=== PATIENT | male | born 1985 | race Caucasian/White ===

== ENCOUNTER 2021-04-12 21:38 | Emergency (ER) | payer BC, SELFPAY ==
[2021-04-12 21:57] VITALS: BP 149/98; PULSE 88; RESP 18; TEMP 36.8; O2SAT 97; BMI 35.1
--- NOTE | 2021-04-12 22:04 | XR_ITS ---
PROCEDURE INFORMATION: Exam: XR Chest Exam date and time: 04/12/2021 10:04 PM Age: 35 years old Clinical indication: Shortness of breath; Right-sided; Prior surgery; Surgery date: 6+ months; Surgery type: Pna; Patient HX: Right sided pain when breathing, SOA, nonsmoker; Additional info: Short of breath TECHNIQUE: Imaging protocol: XR of the chest. Views: 2 views. COMPARISON: CR CXR CHEST(2 VIEWS-NOT PORTABLE) 09/30/2017 11:09 PM FINDINGS: Lungs: No infiltrate is seen. Pleural spaces: No pleural effusion is seen. Heart/Mediastinum: Unremarkable. No cardiomegaly. Diaphragm: There is elevation of the right hemidiaphragm. Bones/joints: Unremarkable. IMPRESSION: 1. Elevation of the right hemidiaphragm. 2. No infiltrate or pleural effusion is seen.
--- NOTE | 2021-04-12 22:25 | HMH.EDGENADL ---
ED Disposition Clinical Impression: Pleurisy Disposition: Home, Self-Care Condition on Discharge: Good Instructions: DI for Pleurisy Additional Instructions: see pcp for follow up Prescriptions: Ketorolac Tromethamine [Toradol 10mg tablet] 10 mg PO Q6HP PRN #8 tab MDD 40mg/day PRN Reason: Moderate To Severe Pain Transmission Status: Pending to [facility] Referrals: Avril Salas [Primary Care Provider] - - Critical Care Critical Care Time: No Attestation: On 04/12/21, the high probability of a clinically significant, sudden or life threatening deterioration of the following system(s) required my full and direct attention, intervention and personal management. The time I documented below is in addition to time spent performing reported procedures but includes the following listed in this critical care notation. Medical Decision Making - Medical Records Medical records reviewed: Yes: I reviewed the patient's medical records. - Chris Inquiry Pt receiving controlled substance: No Vital Signs: 04/12/21 21:57 04/12/21 22:26 Temperature 98.2 F Temperature Source Oral Pulse Rate 85 Pulse Rate [Right] 88 Respiratory Rate 18 Blood Pressure 144/97 H Blood Pressure [Right Arm] 149/98 H Blood Pressure Mean [Right Arm] 115 Blood Pressure Source [Right Arm] Automatic Cuff Blood Pressure Position [Right Arm] Sitting 02 Sat by Pulse Oximetry 97 98 Oxygen Delivery Method Room Air Orders (Tests/Meds): ORDERS Category Date Time Status Chest XR 2 view (NOT portable) [XR chest 2V] Stat Exams 04/12/21 22:04 Taken - Radiology Data #1 Image(s): Chest Image Reviewed: Yes I reviewed the patient's radiology image Preliminary Findings: Normal/NAD General Adult HPI - General Chief complaint: PAIN Stated complaint: Rib pain when breathing and with movement Time Seen by Provider: 04/12/21 22:05 Mode of Arrival: Ambulatory Source of Information: Patient, Medical Record Limitations: No Limitations Description of Symptoms (Recalled from ER Triage Doc. by RN): Pt states he has right mid rib pain with palpation and deep breaths. Abd soft and non-tender. Pt denies any N/V/D - History of Present Illness HPI narrative: hx of rt rib pain worse with mov and deep insp - had hx of chest tube and pxt Onset (ago): hour(s) Location: chest Severity: moderate Consistency: intermittent Associated symptoms: denies other symptoms - Related Data Home Medications Medication Instructions Recorded Confirmed ARIPiprazole [Abilify Mycite] 10 mg PO HS 04/12/21 04/12/21 Buprenorphine HCl/Naloxone HCl 1 each SL DAILY 04/12/21 04/12/21 [Suboxone 8 mg-2 mg Sl Film] Gabapentin [Neurontin 800mg Tab] 800 mg PO QID 04/12/21 04/12/21 Hydroxychloroquine Sulfate 200 mg PO DAILY 04/12/21 04/12/21 [Plaquenil 200mg tablet] Metoprolol Succinate [Metoprolol 25 mg PO DAILY 04/12/21 04/12/21 Succinate 25mg Tablet*] Venlafaxine HCl [Venlafaxine HCl 150 mg PO DAILY 04/12/21 04/12/21 ER] clonazePAM [Clonazepam] 0.5 mg PO TID 04/12/21 04/12/21 predniSONE [Prednisone 5mg See Taper PO DAILY 04/12/21 04/12/21 Tab] Previous Rx's Medication Instructions Recorded Ketorolac Tromethamine [Toradol 10 mg PO Q6HP PRN #8 tab MDD 04/12/21 10mg tablet] 40mg/day Allergies Allergy/AdvReac Type Severity Reaction Status Date / Time No Known Allergies Allergy Unverified 10/20/17 14:52 [facility] History - Hepatitis A Screen Drug use history?: Yes High risk sexual behaviors?: No History of sexually transmitted infection?: No Currently employed?: No Childcare worker?: No Do you have indoor plumbing?: Yes Do you have electricity?: Yes Attestation statement:: This patient has been screened for Hepatitis A risk factors. I have reviewed the patient's past medical history: Yes Medical History: Denies:: Diabetes Mellitus Type 1, Diabetes Mellitus Type 2 - Social History
[2021-04-12 22:26] VITALS: BP 144/97; PULSE 85; O2SAT 98
[2021-04-12 23:14] VITALS: BP 153/95; PULSE 72; RESP 16; TEMP 36.8; O2SAT 98
== END 2021-04-12 23:15 | disposition home or self-care (01) ==
PROVIDERS: Emergency Provider Emergency Medicine; PCP Emergency Medicine
DX: R09.1 Pleurisy (principal); R07.9 Chest pain, unspecified; F17.290 Nicotine dependence, other tobacco product, uncomplicated
CPT/HCPCS: 71046; 99282

== ENCOUNTER → 2021-06-21 14:23 | Outpatient (CLI) | payer BC, SELFPAY ==
--- NOTE | 2021-06-21 14:24 | CA_ITS ---
APPROVED REPORT Bilateral Upper Extremity Venous Study for DVT. Geospatial Image Analyst: Coni Pina RVT Indications Upper Extremity Pain: Bilateral Upper Extremity Edema: Bilateral PT HAS BILATERAL HAND SWELLING/REDNESS X 1 YEAR Risk Factors Current Smoker Vein Imaging IJV (R): Normal phasic flow is seen. Normal flow, augmentation and compression is seen. No evidence of Deep Vein Thrombosis. No abnormalities are demonstrated. SCV (R): Normal phasic flow is seen. Normal flow, augmentation and compression is seen. No evidence of Deep Vein Thrombosis. No abnormalities are demonstrated. Axillary (R): Normal phasic flow is seen. Normal flow, augmentation and compression is seen. No evidence of Deep Vein Thrombosis. No abnormalities are demonstrated. Brachial (R): Normal phasic flow is seen. Normal flow, augmentation and compression is seen. No evidence of Deep Vein Thrombosis. No abnormalities are demonstrated. Basilic (R): Normal phasic flow is seen. Normal flow, augmentation and compression is seen. No evidence of Deep Vein Thrombosis. No abnormalities are demonstrated. Cephalic (R): Normal phasic flow is seen. Normal flow, augmentation and compression is seen. No evidence of Deep Vein Thrombosis. No abnormalities are demonstrated. Radial (R): Compressible Ulnar (R): Compressible IJV (L): Normal phasic flow is seen. Normal flow, augmentation and compression is seen. No evidence of Deep Vein Thrombosis. No abnormalities are demonstrated. SCV (L): Normal phasic flow is seen. Normal flow, augmentation and compression is seen. No evidence of Deep Vein Thrombosis. No abnormalities are demonstrated. Axillary (L): Normal phasic flow is seen. Normal flow, augmentation and compression is seen. No evidence of Deep Vein Thrombosis. No abnormalities are demonstrated. Brachial (L): Normal phasic flow is seen. Normal flow, augmentation and compression is seen. No evidence of Deep Vein Thrombosis. No abnormalities are demonstrated. Basilic (L): Normal phasic flow is seen. Normal flow, augmentation and compression is seen. No evidence of Deep Vein Thrombosis. No abnormalities are demonstrated. Cephalic (L): Normal phasic flow is seen. Normal flow, augmentation and compression is seen. No evidence of Deep Vein Thrombosis. No abnormalities are demonstrated. Radial (L): Compressible Ulnar (L): Compressible Findings Study suggests no evidence of DVT or SVT of the bilateral upper extremities. Conclusion Study suggests no evidence of DVT or SVT of the bilateral upper extremities. Critical Notification Date: 06/21/2021 Time: 15:06 Physician Name: Susanna's office Electronically signed by : Cb Be MD 06/21/2021 15:40:51
--- NOTE | 2021-06-21 15:06 | XR_ITS ---
PROCEDURE: XR HAND LT MIN 3V CLINICAL INDICATION: Swelling COMPARISON: No exams were available for comparison FINDINGS: There is mild diffuse soft tissue swelling. No fracture or dislocation. No lytic or blastic change. The joint spaces are well preserved. No radiopaque foreign bodies or soft tissue gas apparent IMPRESSION: Diffuse soft tissue swelling otherwise negative Dictated by: Cb Be MD 06/21/2021 15:35 Cb Be MD in OV 06/21/2021 15:35
--- NOTE | 2021-06-21 15:06 | XR_ITS ---
PROCEDURE: XR HAND RT MIN 3V CLINICAL INDICATION: Swelling COMPARISON: No exams were available for comparison FINDINGS: No fracture or dislocation. No lytic or blastic change. There is normal mineralization. The joint spaces are well-preserved. No significant degenerative/arthritic changes. No erosive changes evident. Other findings:There is mild diffuse soft tissue swelling. There is an old 5th metacarpal fracture bowing of the distal aspect of the 5th metacarpal anteriorly IMPRESSION: Soft tissue swelling otherwise negative Dictated by: Cb Be MD 06/21/2021 15:36 Cb Be MD in OV 06/21/2021 15:36
== END ==
PROVIDERS: PCP Family Medicine; Visit Provider Nurse Practitioner Family
DX: L03.90 Cellulitis, unspecified (principal); R60.9 Edema, unspecified
CPT/HCPCS: 73130; 93970

== ENCOUNTER → 2021-06-28 09:46 | Outpatient (CLI) | payer BC, SELFPAY ==
--- NOTE | 2021-06-28 09:54 | CA_ITS ---
APPROVED REPORT EXAM: Comprehensive 2D, Doppler, and color-flow Echocardiogram Welding Machine Feeder: Coni Pina RVT Ht: 5 ft 9 in Wt: 240lbs BSA: 2.23 BP: 144/96 mmHg Indications: EDEMA,SMOKER,FORMER DRUG USER 2D Dimensions LVOT 2.29 cm (M/F) 1.5-2.5 LA Volume 16.00 mL LA Volume Index 7.17 mL/m2 (M/F) 16-34 M-Mode Dimensions RVDd 3.00 cm (0.9-2.6) LA Diam 3.41 cm (1.9-4.0) LVDd 4.40 cm (3.5-5.7) Ao Diam 3.00 cm (2.0-3.7) LVDs 2.54 cm (3.5-5.7) IVSd 1.02 cm (0.6-1.1) PWd 0.83 cm (0.6-1.1) EF (Teich) 73.50% FS 42.30% EDV (Teich) 87.70 mL TAPSE 2.26 (<1.7) ESV (Teich) 23.20 mL LV Diastology E Decel Time 250.00 (160-240 msec) E/A Ratio 1.3 MED E' 7.60 (< 7 cm/sec) E'/MED E' Ratio 11.53 (>14) LAT E' 14.00 (<10 cm/sec) E/LAT E' Ratio 6.26 (>14) Mitral Valve MV E Max Adriel. 88.00 (40-130 cm/s) MV A Velocity 66.00 (40-130 cm/s) E/A Ratio 1.34 MV Decel. Time 250.00 (160-240 ms) MV PHT 73.00 ms Pulmonary Valve PV Peak Velocity 84.00 (50-150 cm/s) Tricuspid Valve TR P. Velocity 241.00 cm/s RAP Estimate 10.00 mmHg RVSP 33.20 mmHg Left Ventricle Left atrium is normal size, left ventricle is normal size, there is no concentric left ventricular hypertrophy, visually estimated ejection fraction 55% with no regional wall motion abnormality, diastolic parameters are within normal range. Right Ventricle Right atrium and right ventricle mildly enlarged with normal contractility. Aortic Valve Aortic valve is grossly normal, there is no aortic stenosis or aortic insufficiency. Mitral Valve Mitral valve is grossly normal, there is trace mitral regurgitation. Tricuspid Valve Tricuspid grossly normal, there is trace tricuspid regurgitation, tricuspid regurgitation jet velocity is inadequate for calculation of the right ventricular systolic pressure. Pulmonic Valve Pulmonic valve is poorly visualized. Great Vessels Aortic root is normal size. Pericardium No significant pericardial effusion noted. Conclusion 1. Normal left ventricular size, preserved left ventricular systolic function, visually estimated ejection fraction 55% with no regional wall motion abnormality, diastolic parameters are within normal range. 2. Mildly enlarged right ventricle with normal contractility. 3. Trace mitral and tricuspid regurgitation. 4. No significant pericardial effusion noted. Electronically signed by : Matty Stephenson MD 06/28/2021 18:22:09
== END ==
PROVIDERS: PCP Family Medicine; Visit Provider Nurse Practitioner Family
DX: R60.9 Edema, unspecified (principal)
CPT/HCPCS: 93306

== ENCOUNTER 2023-01-12 16:39 | Emergency (ER) | payer BC, SELFPAY ==
[2023-01-12 16:55] VITALS: BP 126/89; PULSE 89; RESP 16; TEMP 36.7; O2SAT 97; BMI 34.4
--- NOTE | 2023-01-12 17:45 | EXP.UTC ---
Discharge Plan Disposition Patient Disposition: Home, Self-Care Condition: Good Prescriptions Prescriptions: New benzonatate 100 mg capsule 100 mg PO TID PRN (Reason: cough) Qty: 15 0RF cefdinir 300 mg capsule 300 mg PO BID Qty: 20 0RF No Action lorazepam 0.5 mg tablet 0.5 mg PO BID PRN (Reason: anxiety) Qty: 30 1RF buspirone 15 mg tablet 15 mg PO TID Qty: 90 2RF gabapentin 800 MG tablet 800 mg PO QID metoprolol succinate 25 MG tablet extended release 24 hr 25 mg PO DAILY venlafaxine 150 MG tablet extended release 24hr 150 mg PO DAILY buprenorphine-naloxone 1 EACH film 1 each SL DAILY aripiprazole 10 MG tablet with sensor, strip, pod 10 mg PO HS Referrals Follow up/Referrals: Avril Salas [Primary Care Provider] - See instructions Activity Restrictions/Add. Instructions Additional Instructions/Restrictions: Drink extra fluids with and between meals. If you have difficulty drinking, try very small amounts of water or suck on ice chips. ? Avoid fruit juices, as these do not replace minerals and can actually increase diarrhea. ? Children and adults can use sports drinks to replenish electrolytes. Younger children and infants should use products formulated for children, like oral rehydration solutions. ? Eat food in small amounts and let your stomach recover. ? Get lots of rest. You may feel tired or weak. ? No greasy or fried foods for the next 24-48 hours BRAT diet Bananas Rice Apples and [place] ? Make sure to drink plenty of liquids ? Return if needed ? Straight to ER if any life threatening symptoms ? Follow up with family doctor in the next 48-72 hours if no improvement or any worsening of symptoms Clinical Impressions Clinical Impression: Otitis media Instructions Patient Instructions: Diarrhea, Middle Ear Infection, Cefdinir Discharge ED Provider: Laura Dalton [facility] General Stated complaint: h/a, diarrhea, body aches, congestion Mode of Arrival: Ambulatory Source of Information: Patient Limitations: No Limitations Time Seen by Provider: 01/12/23 17:45 Description of Symptoms (Recalled from Triage Doc. by RN): PATIENT C/O CONGESTION, NAUSEA, HEADACHE, SWEATS, SOA, AND DIARRHEA X 4 DAYS HEENT Symptoms (Recalled from RN notes): Yes Resp Symptoms (Recalled from RN notes): Yes Skin Symptoms (Recalled from RN notes): No MS Symptoms (Recalled from RN notes): No Functional Status (Recalled from RN notes): WNL History of Present Illness Provider Complaint: Patient states that he has been having sinus congestion and pressure, pain in both ears, nausea, cough, headache and body aches States that this morning he got up and had some diarrhea wanting tested for flu and COVID Related Data Home Medications Medication Instructions Recorded Confirmed aripiprazole 10 mg oral tablet 10 mg PO HS . 04/12/21 08/01/21 with sensor, strip, and pod buprenorphine 8 mg-naloxone 2 mg 1 each SL DAILY opiod withdrawl 04/12/21 08/01/21 sublingual film gabapentin 800 mg tablet 800 mg PO QID Pain 04/12/21 08/01/21 metoprolol succinate 25 mg 25 mg PO DAILY High blood pressure 04/12/21 08/01/21 tablet,extended release 24 hr venlafaxine 150 mg tablet,extended 150 mg PO DAILY Depression 04/12/21 08/01/21 release 24 hr Previous Rx's Medication Instructions Recorded buspirone 15 mg tablet 15 mg PO TID #90 tabs 08/01/21 lorazepam 0.5 mg tablet 0.5 mg PO BID PRN anxiety #30 tabs 08/01/21 benzonatate 100 mg capsule 100 mg PO TID PRN cough #15 caps 01/12/23 cefdinir 300 mg capsule 300 mg PO BID #20 caps 01/12/23 Allergies Allergy/AdvReac Type Severity Reaction Status Date / Time No Known Allergies Allergy Verified 01/12/23 17:16 Worker's Comp Is this a Worker's Comp case?: No [facility] Disclaimer: The information contained in this section may have been updated after the sonu
[2023-01-12 17:59] VITALS: BP 126/89; PULSE 89; RESP 16; TEMP 36.7; O2SAT 97
== END 2023-01-12 18:02 | disposition home or self-care (01) ==
PROVIDERS: Emergency Provider Nurse Practitioner; PCP Emergency Medicine
DX: H66.91 Otitis media, unspecified, right ear (principal); R51.9 Headache, unspecified; R05.1 Acute cough; R11.0 Nausea; R19.7 Diarrhea, unspecified; R09.81 Nasal congestion; Z20.822 Contact with and (suspected) exposure to COVID-19
CPT/HCPCS: 99212; 99214; C9803; G0463; U0003; U0005

== ENCOUNTER 2023-01-17 19:51 | Emergency (ER) | payer BC, SELFPAY ==
[2023-01-17 19:53] VITALS: BP 131/78; PULSE 90; RESP 22; TEMP 36.6; O2SAT 90; BMI 34.4
--- NOTE | 2023-01-17 20:15 | XR_ITS ---
PROCEDURE INFORMATION: Exam: XR Chest Exam date and time: 01/17/2023 8:13 PM Age: 37 years old Clinical indication: Cough; Additional info: Chest congestion TECHNIQUE: Imaging protocol: Radiologic exam of the chest. Views: 2 views. Total images: 2 COMPARISON: CR XR CHEST 2V 04/12/2021 10:07 PM FINDINGS: Lungs: Unremarkable. No consolidation. No pulmonary vascular congestion or edema. Pleural spaces: Stable blunting right lateral and posterior costophrenic angle reflecting pleural thickening or chronic trace pleural effusion. No pneumothorax. Heart/Mediastinum: Unremarkable. No cardiomegaly. No mediastinal widening or hilar enlargement. Diaphragm: Stable elevation right hemidiaphragm. Bones/joints: Mild degenerative changes thoracic spine. IMPRESSION: No radiographically acute cardiopulmonary process or significant change.
--- NOTE | 2023-01-17 20:28 | HMH.EDSOB ---
Discharge Plan Disposition Patient Disposition: Home, Self-Care Prescriptions Prescriptions: New azithromycin [azithromycin] 250 mg tablet 250 mg PO DIRECTED Qty: 6 0RF Rx Instructions: Take two (2) tablets on day #1, then one (1) tablet day #2 thru #5 prednisone [prednisone] 20 mg tablet 20 mg PO BID Qty: 10 0RF No Action benzonatate 100 mg capsule 100 mg PO TID PRN (Reason: cough) Qty: 15 0RF gabapentin 800 MG tablet 800 mg PO QID metoprolol succinate 25 MG tablet extended release 24 hr 25 mg PO DAILY buprenorphine-naloxone 1 EACH film 1 each SL DAILY cyclobenzaprine 10 mg tablet 5 - 10 mg PO Q8HP PRN (Reason: Muscle Spasm) Label Comments: take 1/2-1 TABLET BY MOUTH EVERY EIGHT HOURS NEEDED FOR spasm/pain clonazepam 0.5 mg tablet 0.5 mg PO TIDP PRN (Reason: Anxiety) Label Comments: TAKE ONE TABLET up to THREE TIMES DAILY as needed hydroxyzine HCl 50 mg tablet 50 mg PO Q6HP PRN (Reason: Anxiety) Label Comments: TAKE ONE TABLET BY MOUTH EVERY SIX HOURS NEEDED FOR ANXIETY levothyroxine 25 mcg tablet 25 mcg PO DAILY Label Comments: TAKE ONE TABLET BY MOUTH DAILY EVERY MORNING on an empty stomach fluticasone propion-salmeterol [Advair Diskus] 100-50 mcg/dose blister with device 1 inh INHALATION BID Label Comments: inhale ONE PUFF TWICE DAILY albuterol sulfate [Ventolin HFA] 90 mcg/actuation HFA aerosol inhaler 2 puff INHALATION Q4-6H PRN (Reason: soa, wheezing) Label Comments: INHALE TWO PUFFS BY MOUTH EVERY 4-6 HOURS NEEDED cefdinir 300 mg capsule 300 mg PO BID Referrals Follow up/Referrals: Avril Salas [Primary Care Provider] - See instructions Clinical Impressions Clinical Impression: Bronchitis, Reactive airway disease Instructions Patient Instructions: DI for Reactive Airway Disease-Adult Discharge ED Provider: Keegan (ED)Sunny Resp/SOB HPI General Chief Complaint: Shortness of Breath/Dyspnea Stated Complaint: SOA,Congestion,lightheaded,Dizziness Time Seen by Provider: 01/17/23 20:28 Mode of Arrival: Wheelchair Source of Information: Patient, Significant Other and Medical Record Limitations: No Limitations Description of Symptoms (Recalled from ER Triage Doc. by RN): Pt c/o chest congestion, wheezing with SOA, increased swelling, and body aches. States the symtoms returned shortly after he was seen at [facility] on 01/12. He was dx with a middle ear infection and given Cefdinir. Pt also reports he is having dizziness with exertion. History of Present Illness has hx of congestion and has hx of upper ext lymphadema- pt on abx for recent sinus infection MD Complaint: shortness of breath Onset (ago): day(s) Context: recent illness Severity: moderate Consistency/Duration: intermittent Known history of: other (upper ext edema ) Associated symptoms: denies other symptoms Treatment prior to arrival: bronchodilator Related Data Home oxygen amount: 2 liters Home Medications Medication Instructions Recorded Confirmed buprenorphine 8 mg-naloxone 2 mg 1 each SL DAILY opiod withdrawl 04/12/21 01/17/23 sublingual film gabapentin 800 mg tablet 800 mg PO QID Pain 04/12/21 01/17/23 metoprolol succinate 25 mg 25 mg PO DAILY High blood pressure 04/12/21 01/17/23 tablet,extended release 24 hr albuterol sulfate 90 mcg/actuation 2 puff inhalation Q4-6H PRN soa, 01/17/23 01/17/23 aerosol inhaler (Ventolin HFA) wheezing cefdinir 300 mg capsule 300 mg PO BID ear infection 01/17/23 01/17/23 clonazepam 0.5 mg tablet 0.5 mg PO TIDP PRN Anxiety 01/17/23 01/17/23 cyclobenzaprine 10 mg tablet 5 - 10 mg PO Q8HP PRN Muscle Spasm 01/17/23 01/17/23 fluticasone 100 mcg-salmeterol 50 1 inh inhalation BID COPD 01/17/23 01/17/23 mcg/dose blistr powdr for inhalation (Advair Diskus) hydroxyzine HCl 50 mg tablet 50 mg PO Q6HP PRN Anxiety 01/17/23 01/17/23 levothyroxine 25 mcg tablet 25 mcg P
[2023-01-17 20:30] VITALS: PULSE 81
[2023-01-17 20:40] VITALS: PULSE 83
[2023-01-17 21:26] VITALS: PULSE 84
[2023-01-17 21:27] VITALS: PULSE 85
--- NOTE | 2023-01-17 22:49 | PC.NURSE ---
LAB at to attempt to get labs
[2023-01-17 22:52] VITALS: BP 144/86; PULSE 71; RESP 15; TEMP 36.6; O2SAT 93
[2023-01-17 23:11] LABS: Chloride 103 mmol/L (98-107); Sodium 138 mmol/L (136-145)
[2023-01-17 23:12] LABS: Potassium 5.1 mmoL/L (3.5-5.1)
[2023-01-17 23:14] LABS: Alanine Aminotransferase 26 U/L (12-78); Albumin Level 3.3 g/dl (3.5-5.0); Albumin/Globulin Ratio 1.3 (1.1-1.8); Alkaline Phosphatase 50 U/L (38-126); Anion Gap 9.1 mEq/L (5-15); Aspartate Amino Transferase 39 U/L (17-59); Bilirubin,Total 0.3 mg/dl (0.2-1.3); Blood Urea Nitrogen 13 mg/dl (9-20); Carbon Dioxide 31 mmol/L (22.0-30.0); Creatinine Clearance Estimated 193 mL/min (50-200); Estimated Glomerular Filt Rate 108 ml/min (>60); GFR (African American) 131 ML/MIN (>60); Globulin 2.5 g/dL (1.3-3.2); Total Protein,Serum 5.8 g/dl (6.3-8.2)
[2023-01-17 23:15] LABS: Calcium 7.8 mg/dl (8.4-10.2); Glucose 94 mg/dl (74-100)
--- NOTE | 2023-01-17 23:20 | PC.NURSE ---
Have had difficulty placing PIV and obtaining labs. Pt has had 3 rn's and u/s at bedside in attempt to collect. Lab Birgit, also has been at bedside. Able to collect with FS pediatric blood tubes, however the lavender was hemolyzed and unable to process. aware.
[2023-01-17 23:28] LABS: C-Reactive Protein 10.1 mg/L (0-4)
[2023-01-17 23:34] LABS: NT Pro Brain Natriuretic Pep. 102 pg/mL (0-125)
[2023-01-17 23:47] LABS: Procalcitonin 0.062 ng/mL (0.0-2.0)
[2023-01-17 23:49] LABS: T4 (Thyroxine) 5.4 ug/dl (5.53-11.0)
[2023-01-17 23:55] LABS: Thyroid Stimulating Hormone 7.96 uIU/mL (0.465-4.68)
== END 2023-01-17 23:33 | disposition home or self-care (01) ==
PROVIDERS: Emergency Provider Emergency Medicine; PCP Emergency Medicine
DX: J20.9 Acute bronchitis, unspecified (principal); J45.909 Unspecified asthma, uncomplicated; R42 Dizziness and giddiness; R06.02 Shortness of breath
CPT/HCPCS: 71046; 80053; 83880; 84145; 84436; 84443; 86140; 99284; 99285

== ENCOUNTER 2023-10-12 14:47 | Emergency (ER) | payer SELFPAY ==
[2023-10-12 15:00] VITALS: BP 117/69; PULSE 83; RESP 18; TEMP 36.7; O2SAT 96; BMI 41.9
--- OUTSIDE RECORDS SUMMARY | 2023-10-12 16:08 | XMS_ITS | Continuity of Care Document ---
Author Name Unknown Address [address] [place] [phone] Organization [facility] Phone Care Team Providers Care Rn Clinical Research Name Role Phone IRMA MICHAUD Unavailable IRMA MICHAUD Primary Attending ALLISON TEJEDA Primary Care IRMA MICHAUD Admitting ALLERGIES AND ADVERSE REACTIONS ALLERGIES AND ADVERSE REACTIONS Code System Allergy Substance Adverse Reaction Date Reaction (Severity) Comment Status Reported By Updated By No Known Allergies [email or web address] on September 06, 2023 12:20:44 AM UT RESULTS Patient: KRISTY BRAVO Date of : [birth year] 9 LABORATORY RESULTS ORDER 100: STREP GROUP A EIA RAPID SCREEN (LOINC: 6558-1) ORDER DATE: September 05, 2023 10:25:00 PM UT Specimen Source: Swab PERFORMING LAB: [address] [id number] Result Comment: Final Result Date: September 05, 2023 10:30:00 PM UT (TECH: AC) LOINC TEST FLAG RESULT REFERENCE RANGE UPDA VALENTIN BY 6558-1 Streptococcus pyogenes Ag [Presence] in Unspecified specimen by Immunoassay N NEGATIVE NEGATIVE September 05, 2023 10:30:00 PM UTC (TECH: AC) [id number] Internal control result N PASS PASS September 05, 2023 10:30:00 PM UT (TECH: AC) ORDER 200: SARS-COV-2 ELVIRA IN HOUSE (LOINC: 60758-4) ORDER DATE: September 05, 2023 10:25:00 PM UT
--- OUTSIDE RECORDS SUMMARY | 2023-10-12 16:09 | XMS_ITS | Continuity of Care Document ---
Author Name Unknown Address [address] [place] [phone] Organization [facility] Phone Care Team Providers Care Salvage Cutter Name Role Phone IRMA MICHAUD Unavailable IRMA MICHAUD Primary Attending ALLISON TEJEDA Primary Care IRMA MICHAUD Admitting ALLERGIES AND ADVERSE REACTIONS ALLERGIES AND ADVERSE REACTIONS Code System Allergy Substance Adverse Reaction Date Reaction (Severity) Comment Status Reported By Updated By No Known Allergies [email or web address] on September 06, 2023 12:20:44 AM UT RESULTS Patient: KRISTY BRAVO Date of : June [birth year] 9 LABORATORY RESULTS ORDER 100: STREP GROUP A EIA RAPID SCREEN (LOINC: 6558-1) ORDER DATE: September 05, 2023 10:25:00 PM UT Specimen Source: Swab PERFORMING LAB: [address] [id number] Result Comment: Final Result Date: September 05, 2023 10:30:00 PM UT (TECH: AC) LOINC TEST FLAG RESULT REFERENCE RANGE UPDA VALENTIN BY 6558-1 Streptococcus pyogenes Ag [Presence] in Unspecified specimen by Immunoassay N NEGATIVE NEGATIVE September 05, 2023 10:30:00 PM UTC (TECH: AC) [id number] Internal control result N PASS PASS September 05, 2023 10:30:00 PM UT (TECH: AC) ORDER 200: SARS-COV-2 ELVIRA IN HOUSE (LOINC: 32879-2) ORDER DATE: September 05, 2023 10:25:00 PM UT
--- OUTSIDE RECORDS SUMMARY | 2023-10-12 16:09 | XMS_ITS | Continuity of Care Document ---
Author Name Unknown Address [address], [place] [phone] Organization [facility] Phone Care Team Providers Care Freight Elevator Erector Name Role Phone ALLISON TEJEDA Admitting ALLISON TEJEDA Primary Care ALLISON TEJEDA Primary Attending ALLISON TEJEDA Unavailable ALLERGIES AND ADVERSE REACTIONS ALLERGIES AND ADVERSE REACTIONS Code System Allergy Substance Adverse Reaction Date Reaction (Severity) Comment Status Reported By Updated By No Known Allergies [email or web address] on January 08, 2022 10:11:31 PM [facility] DISCHARGE MEDICATIONS Status RXNORM Medication Dose Route Frequency Dates Comments U pdated By Patient discharge medication information is not available. PATIENT OPEN ORDERS Code System Description Frequency Occurrences Priority Start Date Ordering Physician Updated By MEI Paul) HOME SLEEP STUDY ONE TIME 0 Routine August 14, 2023 6:00:00 PM [facility] NIKHIL COOPER MD [email or web address] on August 14, 2023 6:00:00 PM [facility] SCHEDULED PROCEDURES Code System Description Status Scheduled Date Upd ated By Patient scheduled procedure information is not available. MEDICATIONS HOME MEDICATIONS Status RXNORM Medication Dose Route Frequency Dates Comments R eported By Updated By Drug Treatment Unknown
--- OUTSIDE RECORDS SUMMARY | 2023-10-12 16:09 | XMS_ITS | Continuity of Care Document ---
Author Name Unknown Address [address], [place] [id number] Organization [facility] Phone Care Team Providers Care Compliance Review Specialist Name Role Phone ALLISON TEJEDA Admitting ALLISON TEJEDA Primary Care ALLISON TEJEDA Primary Attending ALLISON TEJEDA Unavailable ALLERGIES AND ADVERSE REACTIONS ALLERGIES AND ADVERSE REACTIONS Code System Allergy Substance Adverse Reaction Date Reaction (Severity) Comment Status Reported By Updated By No Known Allergies [email or web address] on January 08, 2022 10:11:31 PM [facility] DISCHARGE MEDICATIONS Status RXNORM Medication Dose Route Frequency Dates Comments U pdated By Patient discharge medication information is not available. PATIENT OPEN ORDERS Code System Description Frequency Occurrences Priority Start Date Ordering Physician Updated By MEI Paul) HOME SLEEP STUDY ONE TIME 0 Routine August 14, 2023 6:00:00 PM [facility] NIKHIL COOPER MD [id number] on August 14, 2023 6:00:00 PM [facility] SCHEDULED PROCEDURES Code System Description Status Scheduled Date Upd ated By Patient scheduled procedure information is not available. MEDICATIONS HOME MEDICATIONS Status RXNORM Medication Dose Route Frequency Dates Comments R eported By Updated By Drug Treatment Unknown
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
--- NOTE | 2023-10-12 16:17 | PC.NURSE ---
DR WALDRON AT BEDSIDE
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
--- NOTE | 2023-10-12 18:51 | PC.NURSE ---
DR WALDRON AT BEDSIDE TO REEVALUATE PT
[2023-10-12 18:57] VITALS: BP 142/94; PULSE 64; RESP 18; TEMP 36.7; O2SAT 97
== END 2023-10-12 19:01 | disposition home or self-care (01) ==
PROVIDERS: Emergency Provider Emergency Medicine; PCP Emergency Medicine
DX: M25.511 Pain in right shoulder (principal); M79.605 Pain in left leg; M25.512 Pain in left shoulder; V89.2XXA Person injured in unspecified motor-vehicle accident, traffic, initial encounter; F17.290 Nicotine dependence, other tobacco product, uncomplicated; R41.82 Altered mental status, unspecified; I89.0 Lymphedema, not elsewhere classified
CPT/HCPCS: 70450; 71250; 72125; 72128; 72131; 73030; 73060; 73562; 73590; 73610; 73620; 74176; 99285

== ENCOUNTER 2024-01-04 16:15 | Emergency (ER) | payer BC, SELFPAY ==
[2024-01-04 16:36] VITALS: BP 137/82; PULSE 95; RESP 16; TEMP 36.5; O2SAT 96; BMI 33.5
--- NOTE | 2024-01-04 16:43 | ED_ITS ---
I was consulted by the JUNIOR, and we discussed the complexity of the problems being addressed. I approved the treatment and management plan for this patient's care in the emergency department, thus performing a substantive portion of the medical decision making. Diandra Roberson MD, FOZIA, FACE Discharge Plan Disposition Patient Disposition: Home, Self-Care Condition: Good Prescriptions Prescriptions: No Action benzonatate 100 mg capsule 100 mg PO TID PRN (Reason: cough) Qty: 15 0RF gabapentin 800 MG tablet 800 mg PO QID metoprolol succinate 25 MG tablet extended release 24 hr 25 mg PO DAILY buprenorphine-naloxone 1 EACH film 1 each SL DAILY cyclobenzaprine 10 mg tablet 5 - 10 mg PO Q8HP PRN (Reason: Muscle Spasm) Patient Comments: take 1/2-1 TABLET BY MOUTH EVERY EIGHT HOURS NEEDED FOR spasm/pain clonazepam 0.5 mg tablet 0.5 mg PO TIDP PRN (Reason: Anxiety) Patient Comments: TAKE ONE TABLET up to THREE TIMES DAILY as needed hydroxyzine HCl 50 mg tablet 50 mg PO Q6HP PRN (Reason: Anxiety) Patient Comments: TAKE ONE TABLET BY MOUTH EVERY SIX HOURS NEEDED FOR ANXIETY levothyroxine 25 mcg tablet 25 mcg PO DAILY Patient Comments: TAKE ONE TABLET BY MOUTH DAILY EVERY MORNING on an empty stomach fluticasone propion-salmeterol [Advair Diskus] 100-50 mcg/dose blister with device 1 inh INHALATION BID Patient Comments: inhale ONE PUFF TWICE DAILY albuterol sulfate [Ventolin HFA] 90 mcg/actuation HFA aerosol inhaler 2 puff INHALATION Q4-6H PRN (Reason: soa, wheezing) Patient Comments: INHALE TWO PUFFS BY MOUTH EVERY 4-6 HOURS NEEDED cefdinir 300 mg capsule 300 mg PO BID azithromycin [azithromycin] 250 mg tablet 250 mg PO DIRECTED Qty: 6 0RF Rx Instructions: Take two (2) tablets on day #1, then one (1) tablet day #2 thru #5 prednisone [prednisone] 20 mg tablet 20 mg PO BID Qty: 10 0RF Referrals Follow up/Referrals: Provider,Referral, [Primary Care Provider] - See instructions Activity Restrictions/Add. Instructions Additional Instructions/Restrictions: Patient should establish care with a PCP if he does not have 1 already for further evaluation of his chronic lymphedema Clinical Impressions Clinical Impression: Medical clearance for incarceration Discharge ED Provider: Diandra Roberson General Adult HPI General Chief complaint: Medical Clearance Stated complaint: medical clearance/blood draw Time Seen by Provider: 01/04/24 16:36 Mode of Arrival: Ambulatory Source of Information: Patient Limitations: No Limitations Description of Symptoms (Recalled from ER Triage Doc. by RN): medical clearance History of Present Illness HPI narrative: Patient presents in the custody of law enforcement for medical clearance for incarceration. Related Data Home Medications Medication Instructions Recorded Confirmed buprenorphine 8 mg-naloxone 2 mg 1 each SL DAILY opiod withdrawl 04/12/21 01/17/23 sublingual film gabapentin 800 mg tablet 800 mg PO QID Pain 04/12/21 01/17/23 metoprolol succinate 25 mg 25 mg PO DAILY High blood pressure 04/12/21 01/17/23 tablet,extended release 24 hr albuterol sulfate 90 mcg/actuation 2 puff inhalation Q4-6H PRN soa, 01/17/23 01/17/23 aerosol inhaler (Ventolin HFA) wheezing cefdinir 300 mg capsule 300 mg PO BID ear infection 01/17/23 01/17/23 clonazepam 0.5 mg tablet 0.5 mg PO TIDP PRN Anxiety 01/17/23 01/17/23 cyclobenzaprine 10 mg tablet 5 - 10 mg PO Q8HP PRN Muscle Spasm 01/17/23 01/17/23 fluticasone 100 mcg-salmeterol 50 1 inh inhalation BID COPD 01/17/23 01/17/23 mcg/dose blistr powdr for inhalation (Advair Diskus) hydroxyzine HCl 50 mg tablet 50 mg PO Q6HP PRN Anxiety 01/17/23 01/17/23 levothyroxine 25 mcg tablet 25 mcg PO DAILY thyroid 01/17/23 01/17/23 Previous Rx's Medication Instructions Recorded benzonatate 100 mg capsule 100 mg PO TID PRN cough #15 caps 01/12/23 azithromycin 250 mg tablet 250 mg PO DIRECTED #6 tabs 01/17/23 prednisone 20 mg tablet 20 mg PO BID #10 tabs 01/17/23 Allergies Allergy/AdvReac Type Severity Reaction Status Date / Time No Known Allergies Allergy Verified 01/12/23 17:16 [facility] Disclaimer: The information contained in this section may have been updated after the patient was seen, as this information can be updated by other users. Social History Smoking Status: Current every day smoker tobacco type: smokeless tobacco alcohol intake: current substance use type: former substance user, heroin, opiates and prescription drug current occupational status: unemployed Travel in the last 8 weeks: None ROS Obtained: Yes Systems reviewed as appropriate & no additional complaints except as documented Physical Exam General General appearance: alert and in no apparent distress Head Head exam: atraumatic and normal inspection Eye Eye exam: Present normal appearance and EOMI ENT ENT exam: Present normal exam, normal oropharynx and mucous membranes moist Neck Neck exam: Present normal inspection and full ROM Chest Chest inspection: Present normal inspection and symmetric chest wall rise Respiratory Respiratory exam: Present normal lung sounds bilaterally; Absent respiratory distress Cardiovascular Cardiovascular exam: Present regular rate, normal rhythm, normal heart sounds, +S1 and +S2 Abdominal Exam Abdominal exam: Present soft and normal bowel sounds; Absent tenderness Extremities Exam Extremities exam: Present normal inspection and full ROM Back Exam Back exam: Present normal inspection and full ROM Neurological Exam Neurological exam: Present alert, oriented X3 and CN II-XII intact Psychiatric Psychiatric exam: Present normal affect and normal mood Other Other exam information: Patient has extensive lymphedema of the bilateral upper extremities past the elbow proximally and including the hands distally, with multiple wounds that the patient states are from crawling under the porch for a busted pipe . However it looks like that there are injection sites. In any event there is no evidence of erythema fluctuance lymphangitis. Patient has lymphedema also in the bilateral lower extremities again without evidence of acute infection and appears to be well-established chronic. Medical Decision Making Medical Records Medical records reviewed: Yes I reviewed the patient's medical records. Chris Inquiry Pt receiving controlled substance: No Vital Signs: 01/04/24 16:36 Temperature 97.7 F Temperature Source Oral Pulse Rate [Left] 95 H Respiratory Rate 16 Blood Pressure [Left Arm] 137/82 Blood Pressure Mean [Left Arm] 100 02 Sat by Pulse Oximetry 96 Oxygen Delivery Method Room Air Medical Decision Narrative: In summary patient is a 38-year-old male who presents to the emergency department for evaluation of medical clearance for incarceration. Patient is patient is hemodynamically stable and afebrile upon arrival. Physical exam reveals chronic lymphedema of the bilateral upper extremities including the hands as well as lymphedema of the bilateral lower extremities. Patient has no acute findings on physical exam and no suggestion of an immediate problem needing immediate attention. Therefore he is cleared for medical clearance for incarceration. Did discuss with the patient needing to establish care with a PCP if he did not have 1 for further workup of his lymphedema. Patient verbalized understanding Critical Care Critical Care Time Critical Care Time: No
[2024-01-04 16:55] VITALS: BP 136/80; PULSE 90; RESP 16; TEMP 36.5; O2SAT 97
== END 2024-01-04 16:55 | disposition home or self-care (01) ==
PROVIDERS: Emergency Provider Student in an Organized Health Care Education/Training Program
DX: Z00.8 Encounter for other general examination (principal)
CPT/HCPCS: 99281

== ENCOUNTER 2024-11-25 14:58 | Outpatient (RCR) | payer MEDICAID, SELFPAY | END 2024-11-25 23:59 | disposition home or self-care (01) | LOC: PT 14:58 | PROVIDERS: Visit Provider Surgery Vascular Surgery | DX: I89.0 Lymphedema, not elsewhere classified (principal) | CPT/HCPCS: 97163 ==

== ENCOUNTER 2024-12-14 11:00 | Outpatient (RCR) | payer MEDICAID, SELFPAY | END 2024-12-14 23:59 | disposition home or self-care (01) | LOC: PT 11:00 | PROVIDERS: Visit Provider Surgery Vascular Surgery | DX: I89.0 Lymphedema, not elsewhere classified (principal) | CPT/HCPCS: 97140; 97760 ==

== ENCOUNTER 2025-05-03 12:22 | Outpatient (CLI) | payer MEDICAID, SELFPAY ==
--- OUTSIDE RECORDS SUMMARY | 2025-05-03 12:25 | XMS_ITS | Clinical Summary ---
Author Organization [facility] Address [address] [place] [address] Care Team Providers Care [employer] Senior Specialist Name Role Phone Avril Carlton Primary Care Provider [phone] Allergies No known active allergies Medications Buprenorphine HCl-Naloxone HCl (Suboxone) 2-0.[address] 1 Film under the tongue 1 (one) time each day. Active SUMAtriptan (Imitrex) 50 MG tablet Take 50 mg by mouth if needed. 10/23/20 20 Active albuterol 108 (90 Base) MCG/ACT inhaler Inhale 2 puffs every 4 (four) hours if needed. 09/14/20 20 Active metoprolol succinate XL (Toprol-XL) 25 MG 24 hr tablet Take 25 mg by mouth 1 (one) time each day. 03/26/20 21 Active ARIPiprazole (Abilify) 10 MG tablet Take 10 mg by mouth every night. 03/20/20 21 Active venlafaxine XR (Effoxor-XR) 150 MG 24 hr capsule Take 150 mg by mouth 1 (one) time each day. with food 03/26/20 21 Active ondansetron ODT (Zofran-ODT) 8 MG disintegrating tablet Take 8 mg by mouth if needed. 12/14/19 21 Active tamsulosin (Flomax) 0.4 MG 24 hr capsule Take 0.4 mg by mouth 1 (one) time each day. 02/26/20 21 Active clonazePAM (KlonoPIN) 0.5 MG tablet Take 0.5 mg by mouth 3 (three) times a day. 03/20/20 21 Active gabapentin (Neurontin) 800 MG tablet Take 800 mg by mouth 4 (four) times a day. 03/26/20 21 Active cyclobenzaprine (Flexeril) 10 MG tablet Take 10 mg by mouth 3 (three) times a day if needed for muscle spasms. Active Procto-Med HC 2.5 % rectal cream Insert 1 application into the rectum 3 (three) times a day. 07/24/20 21 Active hydrOXYzine HCl (Atarax) 50 MG tablet Take 1 tablet by mouth every 6 (six) hours if needed. 07/29/20 21 Active Advair Diskus 100-50 MCG/ACT diskus inhaler inhale 1 puff 2 times per day 05/09/20 22 Active levothyroxine (Synthroid, Levoxyl) 25 MCG tablet TAKE ONE TABLET BY MOUTH DAILY EVERY MORNING ON AN EMPTY STOMACH 06/16/20 22 Active Active Problems Problem Noted Date Diagnosed Date Arm swelling 04/13/2023 Lymphedema 04/02/2022 Abnormal laboratory test 02/11/2021 Back pain 02/11/2021 Foot pain 02/11/2021 Hand pain 02/11/2021 Joint swelling 02/11/2021 Community acquired pneumonia of right lower lobe of lung 09/19/2020 Hydropneumothorax 09/19/2020 Encounters Date Type Department Care Team Description 02/17/2025 7:59 PM EDT - 02/18/2025 12:15 AM EDT Emergency [facility] [address] [place] [address] Jenny Gibbons MD Prabhu, Luca Malave MD Corneal abrasion due to contact lens, bilateral (Primary Dx) Discharge Disposition: Home or Self Care 02/17/2025 Ophth Exam [facility] [address] [place] [id number] Michael Salas MD 02/17/2025 Travel 02/13/2025 Telephone [facility] [address] [facility] [address] [place] [address] Stefano Muhammad MD HCN - Patient Message from Last 3 Months Family History Medical History Relation Name Comments Arthritis Father Arthritis Mother Relation Name Status Comments Father Mother Social History Tobacco Use Types Packs/Day Years Used Date Smoking Tobacco: Never Smokeless Tobacco: Current Chew Tobacco Cessation:Ready to Q uit: Not Asked; Counseling Given: Not Answered Alcohol Use Standard Drinks/Week Comments No 0 (1 standard drink = 0.6 oz pur e alcohol) PHQ-2 Answer Date Recorded Patient Health Questionnaire-2 Score 0 04/13/2023 PHQ-2A Answer Date Recorded Patient Health Questionnaire-2 Score 0 04/13/2023 Sex and Gender Information Value Date Recorded Sex Assigned at Not on file Legal Sex Male 7:38 PM EDT Gender Identity Not on file Sexual Orientation Not on file Last Filed Vital Signs Vital Sign Reading Time Taken Comments Blood Pressure 141/77 02/18/2025 12:15 AM EDT Pulse 68 02/18/2025 12:15 AM EDT Temperature 36.4 C (97.6 F) 02/18/2025 12:15 AM EDT Respiratory Rate 19 02/18/2025 12:15 AM EDT Oxygen Saturation 98% 02/18/2025 12:15 AM EDT Inhaled Oxygen Concentration - - Weight 109 kg (240 lb) 02/17/2025 8:08 PM EDT Height 175.3 cm (5' 9 ) 02/17/2025 8:08 PM EDT Body Mass Index 35.44 02/17/2025 8:08 PM EDT Plan of Treatment Health Maintenance Due Date Last Done Comments [facility]-Infant/Child/Adol SDOH Screenings 1984 [facility]-Varicella Vaccines (1 of 2 - 13+ 2-dose series) 1997 HPV Vaccines (1 - Male 3-dos e series) 1999 [facility]- SDOH Screenings 2002 [facility]-Adult SDOH Screenings 2002 [facility]-Hepatitis B Vaccines (1 of 3 - 19+ 3-dose series) 2003 [facility]-Pneumococcal Vaccine: Pediatrics (0 to 5 Years) and At-Risk Patients (6 to 49 Years) (1 of 2 - PCV) 2003 [facility]-MGURP-64 Vaccine (3 - Moderna risk series) 06/25/2021 05/28/2021, 03/26/2021 [facility]-Depression Screening 04/13/2024 023, 04/11/2021 [facility]-Influenza Vaccine (Seaso n Ended) 2025 [facility]-DTaP,Tdap,and Td Vaccine s (3 - Td or Tdap) 09/15/2033 09/15/2023, 07/02/1999 [facility]-Zoster Vaccines (1 of 2) 2034 [facility]-Hepatitis A Vaccines Aged Out 019, 10/01/2018 No longer eligible based on patient's age to complete this topic [facility]-HIV Screening Completed 02/11/2021 [facility]-Obesity Intervention Completed 023, 12/26/2022 [facility]-HIB Vaccines Aged Out No longer e ligible based on patient's age to complete this topic [facility]-IPV Vaccines Aged Out No longer e ligible based on patient's age to complete this topic [facility]-Rotavirus Vaccines Aged Out No lo nger eligible based on patient's age to complete this topic Procedures Procedure Name Priority Date/Time Associated Diagnosis Comments EXTRA TUBE LIGHT GREEN TOP Routine 02/17/2025 9:20 PM EDT EXTRA TUBES Routine 02/17/2025 9:20 PM EDT C-REACTIVE PROTEIN, PLASMA STAT 02/17/2025 9:16 PM EDT SEDIMENTATION RATE, AUTOMATED STAT 02/17/2025 9:16 PM EDT COMPREHENSIVE METABOLIC PANEL, PLASMA STAT 02/17/2025 9:16 PM EDT CBC WITH AUTO DIFFERENTIAL STAT 02/17/2025 9:16 PM EDT HIV 1/2 ANTIBODY/ANTIGEN SCREEN WITH REFLEX TO HIV I/II DIFFERENTIATION Routine 02/11/2021 4:10 PM EDT from Last 3 Months or Most Recently Relevant to Health Maintenance Results * Light Green Top (02/17/2025 9:20 PM EDT) Extra Hold for add-ons 02/18/2025 12:02 AM EDT [facility] Comment:Auto resulted. Blood Venous blood specimen / Unknown 02/17/2025 9:20 PM EDT 02/17/2025 9:20 PM EDT Jenny Gibbons MD LAB BLOOD ORDERABLES Final Res ult Performing Organization Address [facility]/ZIP Co de Phone Number [facility] [address] [place] [address] * (ABNORMAL) Sed rate, automated (02/17/2025 9:16 PM EDT) Sedimentation Rate 21(H) <15 mm/hr 2024 9:53 PM EDT [facility] Blood Venous blood specimen / Unknown Venipuncture / Unknown 02/17/2025 9:16 PM EDT 02/17/2025 9:19 PM EDT Jenny Gibbons MD LAB BLOOD ORDERABLES Final Res ult Performing Organization Address City/[facility]/ZIP Co de Phone Number [facility] [address] [place] [address] * CBC w/diff (02/17/2025 9:16 PM EDT) WBC Count 8.25 3.70 - 10.30 10*3/uL LAB HEMATOLOGY METHOD 02/17/2025 9:24 PM EDT [facility] RBC Count 5.50 4.60 - 6.10 10*6/uL LAB HEMATOLOGY METHOD 02/17/2025 9:24 PM EDT [facility] HGB 15.3 13.7 - 17.5 g/dL LAB HEMATOLOGY METHOD 02/17/2025 9:24 PM EDT [facility] HCT 46.8 40.0 - 51.0 % LAB HEMATOLOGY METHOD 02/17/2025 9:24 PM EDT [facility] Platelet Count 213 155 - 369 10*3/uL LAB HEMATOLOGY METHOD 02/17/2025 9:24 PM EDT [facility] MCV 85 79 - 98 fL LAB HEMATOLOGY METHOD 02/17/2025 9:24 PM EDT [facility] MCH 27.8 26.0 - 32.0 pg LAB HEMATOLOGY METHOD 02/17/2025 9:24 PM EDT [facility] MCHC 32.7 30.7 - 35.5 g/dL LAB HEMATOLOGY METHOD 02/17/2025 9:24 PM EDT [facility] RDW 13.5 11.5 - 14.5 % LAB HEMATOLOGY METHOD 02/17/2025 9:24 PM EDT [facility] MPV 9.4 8.8 - 12.5 fL LAB HEMATOLOGY METHOD 02/17/2025 9:24 PM EDT [facility] nRBC 0.0 <=0.0 per 100 WBCs LAB HEMATOLOGY METHOD 02/17/2025 9:24 PM EDT [facility] Differential Type Automated LAB HEMATOLOGY METHOD 02/17/2025 9:24 PM EDT [facility] Neutrophils % 67 % LAB HEMATOLOGY METHOD 02/17/2025 9:24 PM EDT [facility] Lymphocytes % 24 % LAB HEMATOLOGY METHOD 02/17/2025 9:24 PM EDT [facility] Monocytes % 4 % LAB HEMATOLOGY METHOD 02/17/2025 9:24 PM EDT [facility] Eosinophils % 4 % LAB HEMATOLOGY METHOD 02/17/2025 9:24 PM EDT [facility] Basophils % 1 % LAB HEMATOLOGY METHOD 02/17/2025 9:24 PM EDT [facility] Immature Granulocytes % 0 % LAB HEMATOLOGY METHOD 02/17/2025 9:24 PM EDT [facility] Neutrophils Absolute 5.59 1.60 - 6.10 10*3/uL LAB HEMATOLOGY METHOD 02/17/2025 9:24 PM EDT [facility] Lymphocytes Absolute 2.01 1.20 - 3.90 10*3/uL LAB HEMATOLOGY METHOD 02/17/2025 9:24 PM EDT [facility] Monocytes Absolute 0.30 0.30 - 0.90 10*3/uL LAB HEMATOLOGY METHOD 02/17/2025 9:24 PM EDT [facility] Eosinophils Absolute 0.29 0.00 - 0.50 10*3/uL LAB HEMATOLOGY METHOD 02/17/2025 9:24 PM EDT [facility] Basophils Absolute 0.04 0.00 - 0.10 10*3/uL LAB HEMATOLOGY METHOD 02/17/2025 9:24 PM EDT [facility] Immature Granulocytes Absolute 0.02 0.00 - 0.06 10*3/uL LAB HEMATOLOGY METHOD 02/17/2025 9:24 PM EDT [facility] Blood Venous blood specimen / Unknown Venipuncture / Unknown 02/17/2025 9:16 PM EDT 02/17/2025 9:19 PM EDT Narrative [facility] - 02/17/2025 9:24 PM EDT Therapeutic decision making should be based on absolute values, rather than percentages. Jenny Gibbons MD LAB BLOOD ORDERABLES Final Res ult Performing Organization Address [facility]/ZIP Co de Phone Number [facility] [address] [place] [address] * C-reactive protein (02/17/2025 9:16 PM EDT) CRP, Plasma 6.1 <=8.0 mg/L 02/17/2025 9:48 PM EDT [facility] Blood Venous blood specimen / Unknown Venipuncture / Unknown 02/17/2025 9:16 PM EDT 02/17/2025 9:19 PM EDT Narrative [facility] - 02/17/2025 9:48 PM EDT This CRP test is appropriate for assessment of infection, systemic inflammation and/or tissue injury. To assess cardiovascular disease risk order high sensitivity CRP (CRPH). Jenny Gibbons MD LAB BLOOD ORDERABLES Final Res ult [facility] [address] [place] [address] * (ABNORMAL) CMP (02/17/2025 9:16 PM EDT) Glucose, Plasma 96 74 - 99 mg/dL 02/17/2025 9:48 PM EDT [facility] BUN, Plasma 10 7 - 21 mg/dL 02/17/2025 9:48 PM EDT [facility] Creatinine, Plasma 1.14 0.70 - 1.20 mg/dL 02/17/2025 9:48 PM EDT [facility] BUN/Creatinine Ratio 9 02/17/2025 9:48 PM EDT [facility] Sodium, Plasma 139 136 - 145 mmol/L 02/17/2025 9:48 PM EDT [facility] Potassium, Plasma 4.2 3.6 - 4.9 mmol/L 02/17/2025 9:48 PM EDT [facility] Chloride, Plasma 98 97 - 107 mmol/L 02/17/2025 9:48 PM EDT [facility] CO2, Plasma 33(H) 22 - 29 mmol/L 02/17/2025 9:48 PM EDT [facility] Anion Gap 8 6 - 16 mmol/L 02/17/2025 9:48 PM EDT [facility] Total Calcium, Plasma 9.1 8.9 - 10.2 mg/dL 02/17/2025 9:48 PM EDT [facility] Total Protein 7.8 6.3 - 7.9 g/dL 02/17/2025 9:48 PM EDT [facility] Albumin, Plasma 4.6 3.5 - 5.2 g/dL 02/17/2025 9:48 PM EDT [facility] AST, Plasma 23 10 - 50 U/L 02/17/2025 9:48 PM EDT [facility] ALT, Plasma 21 10 - 50 U/L 02/17/2025 9:48 PM EDT [facility] Alkaline Phosphatase, Plasma 67 40 - 115 U/L 02/17/2025 9:48 PM EDT [facility] Total Bilirubin, Plasma 0.5 0.2 - 1.1 mg/dL 02/17/2025 9:48 PM EDT [facility] eGFRcr 83.4 mL/min/1.7 3m*2 02/17/2025 9:48 PM EDT [facility] Comment:Reported eGFRcr in m L/min/1.73m2 is based the CKD-EPI 2020 equation that does not use a race coefficient. Blood Venous blood specimen / Unknown Venipuncture / Unknown 02/17/2025 9:16 PM EDT 02/17/2025 9:19 PM EDT us Jenny Gibbons MD LAB BLOOD ORDERABLES Final Res ult [facility] [address] [place] [address] * HIV 1 & 2 Antibody/Antigen Screen (02/11/2021 4:10 PM EDT) HIV 1 Result PHLEBOTOMY UNABLE TO OBTAIN SPECIMEN SUNQUEST 02/11/2021 4:10 PM EDT 02/11/2021 4:11 PM EDT us Krystin Goldberg APRN, DNP LAB BLOOD ORDERABLE S Final Result SUNQUEST from Last 3 Months or Most Recently Relevant to Health Maintenance Insurance Member Subscriber Plan / Payer (Ef fective 2021-Present) Name:Chilango Tapia III Relation to Subscriber:Self Name:Cihlango Tapia III Payer ID:Not on file Group ID:Not on file Type:Not on file Address: unknown [address] [facility] [employer] Care Teams [employer] Senior Specialist Relationship Specialty Start Date End Date Avril Carlton [address] [id number] PCP - General 06/24/22
--- OUTSIDE RECORDS SUMMARY | 2025-05-03 12:25 | XMS_ITS | Encounter Summary ---
Author Organization Healthcare Address [address] [place] [address] Care Team Providers Care Manufacturers Service Representative Name Role Phone Avril Carlton Primary Care Provider [phone] Encounter Details Date Type Department Care Team (Late st Contact Info) Description 02/17/2025 Ophth Exam [facility] [address] [place] [address] Michael Salas MD [address] [place] [id number] Social History Tobacco Use Types Packs/Day Years Used Date Smoking Tobacco: Never Smokeless Tobacco: Current Chew Alcohol Use Standard Drinks/Week Comments No 0 [...] on file Sexual Orientation Not on file documented as of this encounter Functional Status * Calculated C-SSRS Risk Score (Lifetime/Recent) Answer Date of Assessment Author No Risk Indicated 02/17/2025 8:09 PM EDT Itzel Kendrick * Question Answer Date of Assessment Author 1. Wish to be (Past 1 Month) No 025 8:09 PM EDT Itzel Lui 2. Non-Specific Active Suici sid Thoughts (Past 1 Month) No 02/17/2025 8:09 PM EDT Alonzo Lui 6. Suicidal Behavior (Lifetime) No 8:09 PM EDT Itzel Lui documented as of this encounter Plan of Treatment Not on file documented as of this encounter Visit Diagnoses Not on filedocumented in this encounter Additional Health Concerns Assessment Noted Time PHQ-9 Depression Total Score: 17 021 4:06 PM EDT A fall risk assessment has been complete d for the patient 04/13/2023 11:36 AM EDT A Body Mass Index follow-up plan has been documented for the patient 04/14/2023 8:16 AM EDT documented as of this encounter Care Teams Manufacturers Service Representative Relationship Specialty Start Date End Date Avril Carlton [address] [facility] [place] [address] PCP - General 06/24/22 documented as of this encounter
--- OUTSIDE RECORDS SUMMARY | 2025-05-03 12:25 | XMS_ITS | Encounter Summary ---
Author Organization [facility] Address [address] [place] [address] Care Team Providers Care Parts Assembler Name Role Phone Avril Carlton Primary Care Provider [phone] Reason for Visit * Reason Onset Date Comments HCN - Patient Message 02/13/2025 Encounter Details Date Type Department Care Team (Late st Contact Info) Description 02/13/2025 [facility]phone [facility] [address] [facility] 5th Floor [address] [place] [address] Stefano Muhammad MD [address] [facility] [address] [place] [address] HCN - Patient Message Social History Tobacco Use Types Packs/Day Years [...] Alonzo Lui 6. Suicidal Behavior (Lifetime) No 5 8:09 PM EDT Itzel Lui documented as of this encounter Miscellaneous Notes * Telephone Encounter - Alka Ordonez RN - 02/13/2025 12:56 PM EDT Attempted call to [facility] with no answer. Most recent order set for lymphedema faxed to number provided. * Telephone Encounter - Kenji Hernandez - 02/13/2025 10:31 AM EDT Patient Phone Message Reason for Call: Shala with [employer] called as they are trying to get pt qualified forlymphedema pump. They are requesting more recent office notes that state the dx of lymphedema faxed to them. FAX - [phone] Best contact number and optimal time of day to reach caller: [phone] - anytime Note: Please do not reply to this message. Follow-up communication and further actions as a result of this message need to be communicated with the patient directly, if the patient is not active onMyChart. If the patient is active on MyChart, they will receive notification of the communication/outcome via [employer]. documented in this encounter Plan of Treatment Not on [...] documented as of this encounter Care Teams Parts Assembler Relationship Specialty Start Date End Date Avril Carlton [address] [place] [id number] PCP - General 06/24/22 documented as of this encounter
[2025-05-03 13:34] LABS: Hematocrit 39.4 % (42.0-52.0); Hemoglobin 13.5 g/dL (14.1-18.0); Immature Granulocytes % 0.3 %; Mean Corpuscular HGB Conc 34.3 g/dL (31.8-35.4); Mean Corpuscular Hemoglobin 28.3 pg (27.0-31.2); Mean Corpuscular Volume 82.6 fl (80-94); Nucleated Red Blood Cells % 0 %; Platelet Count 187 K/mm3 (142-424); Red Blood Count 4.77 M/mm3 (4.60-6.20); Red Cell Distribution Width-SD 39.9 fL; White Blood Count 3.7 K/mm3 (4.8-10.8)
[2025-05-03 13:51] LABS: INR 1.03 (0.9-1.1); Prothrombin Time 11.4 seconds (10.1-12.5)
[2025-05-03 14:30] LABS: Albumin Level 4.5 g/dl (3.5-5.0); Chloride 96 mmol/L (98-107); Potassium 3.8 mmoL/L (3.5-5.1); Sodium 140 mmol/L (136-145)
[2025-05-03 14:32] LABS: Blood Urea Nitrogen 13 mg/dl (9-20); Creatinine,Serum 1.00 mg/dl (0.66-1.25); Estimated Glomerular Filt Rate 83 ml/min (>60); GFR (African American) 100 ML/MIN (>60)
[2025-05-03 14:33] LABS: Alanine Aminotransferase 17 U/L (12-78); Albumin/Globulin Ratio 1.7 (1.1-1.8); Alkaline Phosphatase 76 U/L (38-126); Anion Gap 15.8 mEq/L (5-15); Aspartate Amino Transferase 26 U/L (17-59); Bilirubin,Total 0.5 mg/dl (0.2-1.3); Calcium 9.4 mg/dl (8.4-10.2); Carbon Dioxide 32 mmol/L (22.0-30.0); Globulin 2.7 g/dL (1.3-3.2); Glucose 96 mg/dl (74-100); Total Protein,Serum 7.2 g/dl (6.3-8.2)
[2025-05-04 07:13] LABS: Hepatitis B Surface Antigen Negative (Negative)
[2025-05-04 08:49] LABS: Hep A Ab, Total Positive (Negative); Hep B Core Ab, Total Negative (Negative); Hep B Surface Ab, Qual Non Reactive (.)
== END 2025-05-03 23:59 | disposition home or self-care (01) ==
LOC: LAB 12:24
PROVIDERS: PCP Family Medicine; Visit Provider Family Medicine
DX: B19.20 Unspecified viral hepatitis C without hepatic coma (principal)
CPT/HCPCS: 36415; 80053; 85025; 85610; 86704; 86706; 86708; 87340; 87902